=== PATIENT | male | born 1940 | race Two or more races ===

== ENCOUNTER 2018-11-23 12:09 | Outpatient (CLI) | payer OTHER | END 2018-11-23 15:11 | disposition home or self-care (01) | LOC: RAD 12:09 | DX: I10 Essential (primary) hypertension (principal); E78.49 Other hyperlipidemia ==

== ENCOUNTER → 2019-06-13 08:45 | Outpatient (CLI) | payer OTHER | END | disposition home or self-care (01) | LOC: TOM 08:45 | DX: R10.13 Epigastric pain (principal); Z12.11 Encounter for screening for malignant neoplasm of colon ==

== ENCOUNTER 2019-10-26 08:56 | Outpatient (CLI) | payer OTHER | END 2019-10-26 08:58 | disposition home or self-care (01) | LOC: SONOGRAMA 08:56 → MAMO-SONO 09:15 | DX: R49.8 Other voice and resonance disorders (principal); R22.1 Localized swelling, mass and lump, neck ==

== ENCOUNTER 2019-11-09 09:22 | Outpatient (CLI) | payer OTHER | END 2019-11-09 09:27 | disposition home or self-care (01) | LOC: SONOGRAMA 09:22 | DX: R22.2 Localized swelling, mass and lump, trunk (principal) ==

== ENCOUNTER → 2019-12-14 | Outpatient (CLI) | payer OTHER | END | disposition home or self-care (01) | LOC: TOM 08:40 | DX: R49.0 Dysphonia (principal); J38.00 Paralysis of vocal cords and larynx, unspecified; C80.1 Malignant (primary) neoplasm, unspecified; J38.3 Other diseases of vocal cords | CPT/HCPCS: 70450; 70491; 71260; Q9965 ==

== ENCOUNTER 2020-01-17 08:39 | Outpatient (CLI) | payer OTHER | END 2020-01-17 08:50 | disposition home or self-care (01) | LOC: NUCLEAR 08:39 | DX: C76.0 Malignant neoplasm of head, face and neck (principal) | CPT/HCPCS: 78815; A9552 ==